=== PATIENT | female | born 1955 | race Caucasian/White ===

== ENCOUNTER 2025-03-30 08:55 | Outpatient (CLI) | payer MEDICARE, BC, SELFPAY ==
--- NOTE | ~2025-03-30 | XR_ITS ---
XR hip RT 2V w AP pelvis 03/30/2025 09:14 INDICATION: Right hip pain PROCEDURE: AP pelvis and 2 views right hip COMPARISON: No prior studies for comparison. FINDINGS: Fracture, dislocation or subluxation is not identified. The soft tissues appear within norm al limits. No foreign bodies are identified. There is lower lumbar spondylosis. IMPRESSION: 1: NO ACUTE BONE OR JOINT ABNORMALITY IDENTIFIED. Reviewed, dictated and finalized at location A.
--- NOTE | ~2025-03-30 | US_ITS ---
EXAMINATION: US venous doppler LE RT DATE: 03/30/2025 09:36 INDICATION: Right lower leg pain TECHNIQUE: Grayscale ultrasound images without and with compression and Doppler ultrasound images of the right lower extremity veins were obtained. COMPARISON: None. FINDINGS: The visualized portions of right common femoral vein, profunda (deep) femoral vein, femoral vein, pop liteal vein, peroneal trunk, posterior tibial veins, peroneal veins, gastrocnemius vein and greater s aphenous vein outflow are patent. IMPRESSION: 1. No deep venous thrombosis in the right lower limb. Reviewed, dictated and finalized at location A.
--- OUTSIDE RECORDS SUMMARY | 2025-03-30 09:03 | XMS_ITS | Clinical Summary ---
Author Organization [facility] [address] [place] [id number] Care Team Providers Care Drill Operator Name Role Phone Kiara Marie DO Primary Care Provider [phone] Allergies No known active allergies Medications alendronate (FOSAMAX) 70 mg tablet TAKE 1 TABLET BY MOUTH ONCE A WEEK 12 tablet 12/15/2019 Active Surgical History Surgery Date Site/Laterality Comments ENDOMETRIAL ABLATION Family History Medical History Relation Name Comments Breast cancer Neg Hx Social History Tobacco Use Types Packs/Day Years Used Date Smoking Tobacco: Never Assessed Comments No Sex and Gender Information Value Date Recorded Sex Assigned at Not on file Legal Sex Female 5:45 PM DOWELER Gender Identity Female 12/05/2021 6:34 PM CDT Sexual Orientation Straight 12/05/2021 6: 34 PM CDT Obstetrics History Para Term AB IAB SAB Ectopic Multiple Livin g Live Births 2 2 2 Date Outcome GA Total Labor Labor/2nd/3rd Weight Sex Type Anes PTL Denisha A1 A5 Name Clin Term Term Last Filed Vital Signs Vital Sign Reading Time Taken Comments Blood Pressure 120/78 11/05/2018 10:45 AM CDT Pulse 0 05/03/2016 9:45 AM CDT Temperature - - Respiratory Rate - - Oxygen Saturation - - Inhaled Oxygen Concentration - - Weight 63 kg (139 lb) 11/05/2018 10:45 AM CDT Height 165.1 cm (5' 5) 11/05/2018 10:45 AM CDT Body Mass Index 23.13 11/05/2018 10:45 AM CDT Plan of Treatment Health Maintenance Due Date Last Done Comments Colon Cancer Screening-Colonoscopy 1955 Depression Screening 1955 Fall Risk Assessment 1955 Hepatitis C Screening 1956 Hepatitis B Screening 1974 Pneumococcal vaccine 65+ (1 of 1 - PCV) 2006 Osteoporosis Screening-Bone Density Scan 10/10/2020 10/10/2018 Well Visit 65+ 2021 Covid-19 Vaccine (4 - 2023-2 5 season) 2024 06/06/2021, 09/07/2020, 08/21/2020 Breast Cancer Screening-Mammogram 02/10/2025 02/11/2024, 02/06/2023, 11/30/2021, Additional history exists Influenza Vaccine (#1) 2025 2, 05/20/2021, 05/02/2021, Additional history exists DTaP/Tdap/Td Vaccine (3 - Td or Tdap) 09/18/2026 09/18/2016, 09/01/2010 Zoster Vaccine Completed 07/06/2021, 070 02/2021, 03/26/2017 Procedures Procedure Name Priority Date/Time Associated Diagnosis Comments SCREENING MAMMOGRAM BILATERAL W VERA Schedule Routine, Read Routine (OP Routine) 02/11/2024 11:48 AM CDT Screening mammogram, encounter for DEXA AXIAL SKELETON BONE DENSITY 1 OR MORE SITES Routine 10/10/2018 8:36 AM DOWELER from Last 3 Months or Most Recently Relevant to Health Maintenance Results * Screening Mammogram Bilateral W Vera (02/11/2024 11:48 AM CDT) Anatomical Region Laterality Modality Breast Bilateral Mammography Impressions 02/11/2024 12:38 PM CDT BI-RADS ATLAS category (overall): 1 - Negative There is no mammographic evidence of malignancy. A 1 year screening mammogram is recommended. The patient has been or will be contacted. We recommend annual screening mammography for women at average risk of breast cancer beginning at age 40, based on guidelines of the [place] [employer] (ACR Practice Parameter for the Performance of Screening and Diagnostic Mammography) and [place] [employer]. For women with and elevated risk of breast cancer, please refer to the ACR Practice Parameter for specific screening recommendations. The patient will be entered into a reminder system with a target due date of 1 year for her next screening exam. Narrative 02/11/2024 12:38 PM CDT Screening Mammogram Bilateral W Vera: 02/11/24 The study was acquired using full field digital technology and interpreted from soft copy. 2D digital mammographic views, as well as 3D digital tomosynthesis were performed in the CC and MLO projections. CLINICAL: Screening mammogram, encounter for. No relevant medical history has been documented for this patient. History of breast cancer in Neg Hx. COMPARISONS: 02/06/2023 Screening Mammogram Bilateral W Vera 11/30/2021 Screening Mammogram Bilateral W Vera 11/06/2019 Screening Mammogram Bilateral W Vera BREAST TISSUE: The breasts have scattered areas of fibroglandular density. FINDINGS: No suspicious masses, suspicious calcifications, or other suspicious findings are seen within either breast. There has been no suspicious change. us Self Screening Mammogram IMG MAMMO PROCEDURES Fi nal Result * Dexa Axial Skeleton Bone Density 1 or 2 Site (10/10/2018 8:36 AM DOWELER) Anatomical Region Laterality Modality Body N/A Radiographic Yoly ging 10/10/2018 8:36 AM DOWELER Impressions 10/10/2018 9:14 AM DOWELER Osteoporosis. Bone mineral density: Normal (T-score above or = -1.0) Low bone mass (T-score between -1.0 and -2.5) replaces the previously used term osteopenia Osteoporosis (T-score = or below -2.5) Medical evaluation for secondary causes of low bone mineral density may be appropriate. FRAX is a World Health Organization validated fracture risk assessment tool that calculates a person's 10 year probability of a major osteoporosis related fracture and hip fracture. According to the National Osteoporosis Foundation guidelines, postmenopausal women and men age 50 or older with low bone mass and a 10 year probability of a major osteoporosis related fracture = or greater than 20% or a 10 year probability of a hip fracture = or greater than 3% should be considered for treatment. For further information, including treatment recommendations, please refer to the 2013 ISCD Official Positions (http://www.iscd.org) and the NOF's Clinician's Guide to Prevention and Treatment of Osteoporosis (http://www.nof.org/professionals/clinical-guidelines) THIS IS AN ELECTRONICALLY VERIFIED FINAL REPORT 10/10/2018 9:12 AM - Electronically signed by Charly Shaver M.D. RB: EDU Report ID: [id number] Reading Location: [id number] [EOD] Narrative 10/10/2018 9:14 AM DOWELER EXAM DESCRIPTION: Bone Density Hip/Spine (STD) REASON FOR STUDY: 62 y/o year old postmenopausal white female with given history of osteoporosis. Gis Analyst/Model: [employer] A (S/N [id number]) CLINICAL INFORMATION: Current height: 65 inches Maximum height: 67 inches Weight: 139 pounds Risk factors: Previous fracture as an adult. Has taken Actonel, Evista, Fosamax, and calcium. Performs regular weight-bearing exercise. Does not regularly consume dairy products. Drinks caffeinated beverages. COMPARISON: None available. This will serve as a new baseline. Acquisition of a new DXA machine precludes comparison with older exams due to differences in scan type. FINDINGS: AP LUMBAR SPINE L1-L4: Total BMD is 0.694 g/cm2 T-score is -3.2 LEFT HIP: Total BMD is 0.741 g/cm2 T-score is -1.6 Femoral neck BMD is 0.630 g/cm2 T-score is -2.0 Procedure Note Provider, MD Lidia - 01/04/2021 EXAM DESCRIPTION: Bone Density Hip/Spine (STD) REASON FOR STUDY: 62 y/o year old postmenopausal white female with given history of osteoporosis. Gis Analyst/Model: [employer] A (S/N [id number]) CLINICAL INFORMATION: Current height: 65 inches Maximum height: 67 inches Weight: 139 pounds Risk factors: Previous fracture as an adult. Has taken Actonel, Evista, Fosamax, and calcium. Performs regular weight-bearing exercise. Does not regularly consume dairy products. Drinks caffeinated beverages. COMPARISON: None available. This will serve as a new baseline. Acquisition of a new DXA machineprecludes comparison with older exams due to differences in scan type. FINDINGS: AP LUMBAR SPINE L1-L4: Total BMD is 0.694 g/cm2 T-score is -3.2 LEFT HIP: Total BMD is 0.741 g/cm2 T-score is -1.6 Femoral neck BMD is 0.630 g/cm2 T-score is -2.0 IMPRESSION: Osteoporosis. Bone mineral density: Normal (T-score above or = -1.0) Low bone mass (T-score between -1.0 and -2.5) replaces the previously used term osteopenia Osteoporosis (T-score = or below -2.5) Medical evaluation for secondary causes of low bone mineral density may be appropriate. FRAX is a World Health Organization validated fracture risk assessmenttool that calculates a person's 10 year probability of a major osteoporosisrelated fracture and hip fracture. According to the National OsteoporosisFoundation guidelines, postmenopausal women and men age 50 or older with low bonemass and a 10 year probability of a major osteoporosis related fracture = or greater than 20% or a 10 year probability of a hip fracture = or greaterthan 3% should be considered for treatment. For further information, including treatment recommendations, please referto the 2013 ISCD Official Positions (http://www.iscd.org) and the NOF's Clinician's Guide to Prevention and Treatment of Osteoporosis (http://www.nof.org/professionals/clinical-guidelines) THIS IS AN ELECTRONICALLY VERIFIED FINAL REPORT 10/10/2018 9:12 AM - Electronically signed by Charly Shaver M.D. RB: EDU Report ID: [id number] Reading Location: [id number] [EOD] Hubert Mathur MD IMG DXA PROCEDURES Alva l Result from Last 3 Months or Most Recently Relevant to Health Maintenance Insurance MEDICARE Care Teams Drill Operator Relationship Specialty Start Date End Date Kiara Marie DO [address] [address] PCP - General 10/10/18
--- OUTSIDE RECORDS SUMMARY | 2025-03-30 09:03 | XMS_ITS | Encounter Summary ---
Author Organization [facility] Care Team Providers Care Manager Family Name Role Phone Kiara Marie DO Primary Care Provider [phone] Encounter Details Date Type Department Care Team (Latest Contact Info) Description 10/31/2018 Orders Only MMG CLINCONV ProviderLidia MD [address] [place] [id number] Social History Tobacco Use Types Packs/Day Years Used Date Smoking Tobacco: Never Assessed Comments Unknown Sex and Gender Information Value Date Recorded Sex Assigned at Not on file Legal Sex Female 5:45 PM RESIDENT CARE AID Gender Identity Female 12/05/2021 6:34 PM CDT Sexual Orientation Straight 12/05/2021 6: 34 PM CDT documented as of this encounter Plan of Treatment Not on file documented as of this encounter Procedures Procedure Name Priority Date/Time Associated Diagnosis Comments SCAN - LABS 10/31/2018 12:00 AM CDT documented in this encounter Results * SCAN - LABS (10/31/2018 12:00 AM CDT) Narrative 10/31/2018 12:00 AM CDT Ordered by an unspecified provider. us Historical Provider Final Res ult documented in this encounter Visit Diagnoses Not on filedocumented in this encounter Care Teams Manager Family Relationship Specialty Start Date End Date Kiara Marie DO [address] [address] PCP - General 10/10/18 documented as of this encounter
--- OUTSIDE RECORDS SUMMARY | 2025-03-30 09:03 | XMS_ITS | Clinical Summary ---
Author Organization [facility] Address [address] [place] [address] Care Team Providers Care Military Technology Specialist Name Role Phone Kiara Marie Primary Care Provider Allergies Active Allergy Reactions Criticality Noted Date Comments Risedronate GI Upset 05/15/2013 Medications Calcium Carb-Cholecalcif ron 600-200 MG-UNIT Tab Take 1 tablet by mouth 2 (two) times daily. Active fluticasone propionate 50 MCG/ACT nasal spray 2 sprays by Nasal route as needed. 8 Active Multiple Vitamin tablet Active famotidine (PEPCID) 20 MG tablet Take 20 mg by mouth 2 (two) times daily. Active Probiotic Product (PROBIOTIC ADVANCED) Cap Active oxybutynin (DITROPAN) 5 MG tabletIndication s:Overactive bladder TAKE 1 TABLET BY MOUTH TWICE DAILY 180 tablet 2 3 Active rizatriptan (MAXALT) 10 MG tabletIndication s:Migraine without status migrainosus, not intractable, unspecified migraine type TAKE DIRECTED AND MAY REPEAT IN 2 HOURS NEEDED 18 tablet 5 3 Active sertraline (ZOLOFT) 50 MG tabletIndication s:Anxiety TAKE 1 TABLET BY MOUTH DAILY 90 tablet 3 Active Active Problems Problem Noted Date Diagnosed Date Breast pain, right 07/11/2023 Vaginal irritation 07/11/2023 Abdominal pressure 07/11/2023 Finger pain, left 11/23/2022 Overactive bladder 08/25/2022 History of colon polyps 05/27/2020 Anxiety 10/07/2019 Migraines 11/02/2015 Acid reflux disease 05/15/2013 Allergic rhinitis 05/15/2013 Osteoporosis 05/15/2013 Overview (08/25/2022): Description: did not tolerate actonel was on evista but quit that too Fosamax started 2018--took until 2021 but bothered stomach and stopped Does not want to try Prolia Arthritis of multiple sites 10/31/2012 Resolved Problems Problem Noted Date Diagnosed Date Resolved Date Preventative health care 08/25/202204/2023 Encounter for lipid screenin g for cardiovascular disease 08/25/2022 08/28/2022 Encounter for lipid screenin g for cardiovascular disease 06/22/2021 06/27/2021 Encounter for lipid screenin g for cardiovascular disease 05/27/2020 05/31/2020 Preventative health care 05/27/202007/2020 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 05/27/2020 Encounter for preventive health examination 10/31/2012 04/30/2020 Immunizations Immunization Administration Dates Next Due Flucelvax 6 Months+ (Prefill ed Syringe) 04/30/2019,05/29/2016 Fluzone 6 Months+ Quad (0.5 mL Prefilled Syringe) 04/07/2020 Influenza (Generic) 04/16/2018 Influenza Adult (Generic) 04/12/2022,08/2020,04/07/2020,2018 PFIZER COVID-19 (ORIGINAL FORMULATION, PURPLE CAP) mRNA, LNP-S, PF, 30 MCG/0.3 ML DOSE 09/07/2020,08/21/2020 Pneumococcal (Prevnar 20) 04/12/2022 Shingrix 07/06/2021,02/23/2021 Tdap (Generic) 09/18/2016,09/01/2010 Zoster (Zostavax) [address] Unt/0.65Ml 03/27/2017 Family History Medical History Relation Comments Hyperlipidemia Father Hypertension Mother Cancer Other Diabetes Other Relation Status Comments Father Mother Other Social History Tobacco Use Types Packs/Day Years Used Date Smoking Tobacco: Never Smokeless Tobacco: Never Alcohol Use Standard Drinks/Week Comments No 0 (1 standard drink = 0.6 oz pur e alcohol) AUDIT-C Answer Date Recorded Frequency of Alcohol Consumption Never 02/11/2019 Average Number of Drinks Not on file 019 Frequency of Binge Drinking Not on file 01/19 PHQ-2 Answer Date Recorded Patient Health Questionnaire-2 Score 0 08/25/2022 Comments Unknown Sex and Gender Information Value Date Recorded Sex Assigned at Not on file Legal Sex Female 6:17 PM CDT Gender Identity Not on file Sexual Orientation Not on file 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 Not on file Not on noah e Last Filed Vital Signs Vital Sign Reading Time Taken Comments Blood Pressure 110/70 07/11/2023 10:24 AM MECHANICAL ORDNANCE ASSEMBLER Pulse 62 08/25/2022 9:23 AM MECHANICAL ORDNANCE ASSEMBLER Temperature 36.7 C (98 F) 10/07/2019 9:08 AM MECHANICAL ORDNANCE ASSEMBLER Respiratory Rate - - Oxygen Saturation - - Inhaled Oxygen Concentration - - Weight 63.5 kg (140 lb) 07/11/2023 10:24 AM MECHANICAL ORDNANCE ASSEMBLER Height 168.9 cm (5' 6.5) 08/25/2022 9:23 AM MECHANICAL ORDNANCE ASSEMBLER Body Mass Index 22.26 08/25/2022 9:23 AM MECHANICAL ORDNANCE ASSEMBLER Plan of Treatment Health Maintenance Due Date Last Done Comments Hepatitis C 1974 Dexa Scan (General) 2021 Annual Medicare Wellness Visit 08/26/2023 08/25/2022 COVID-19 Vaccine ( season) 2024 06/01/2022, 06/06/2021, 09/07/2020, Additional history exists Mammogram Screening 02/06/2025 02/06/2023 DTaP, Tdap and Td Vaccines (3 - Td or Tdap) 09/18/2026 09/18/2016, 09/01/2010 Colorectal Cancer Screening Colonoscopy (10 Years) 07/20/2027 07/20/2017 RSV Immunization or 60+ Years (1 - 1-dose 75+ series) 12/17/2031 Zoster Vaccines Completed 07/06/2021, 07/0 02/2021, 03/27/2017 Pneumococcal Vaccine: 50+ Years Completed 04/12/2022 Meningococcal B Vaccine Aged Out No l onger eligible based on patient's age to complete this topic Meningococcal Vaccine Aged Out No rj francisco j eligible based on patient's age to complete this topic RSV Immunizations Under 20 Months Aged Out No longer eligible based on patient's age to complete this topic Procedures Procedure Name Priority Date/Time Associated Diagnosis Comments MAMMOGRAM GENERIC (SCAN ORDER) Routine 02/06/2023 COLONOSCOPY Routine 07/20/2017 12:00 AM MECHANICAL ORDNANCE ASSEMBLER from Last 3 Months or Most Recently Relevant to Health Maintenance Results * MAMMOGRAM (02/06/2023) Anatomical Region Laterality Modality Other us Doc Bfma Scanned SCANNING Final Result * Colonoscopy (07/20/2017 12:00 AM MECHANICAL ORDNANCE ASSEMBLER) 07/20/2017 07/20/2017 Narrative TOUCHWORKS TO EPIC CONVERSION - 07/20/2017 12:00 AM MECHANICAL ORDNANCE ASSEMBLER Documented hx of procedure Procedure Note Md Generic MD Robin - 11/07/2018 Documented hx of procedure us Generic Conversion Md EPSTEIN GI PROCEDURE ORDERABLES Final Result TOUCHWORKS TO EPIC CONVERSION from Last 3 Months or Most Recently Relevant to Health Maintenance Insurance MEDICARE [facility] [place] [address] MEDICARE [facility] Care Teams Military Technology Specialist Relationship Specialty Start Date End Date Kiara Marie DO [address] [place] [address] PCP - General 10/21/12
--- OUTSIDE RECORDS SUMMARY | 2025-03-30 09:03 | XMS_ITS | Clinical Summary ---
Author Organization [facility] Address [address] [place] [address] Care Team Providers Care Regulatory And Compliance Technician Name Role Phone Kiara Marie Primary Care Provider [phone] Source Comments [facility],non-owned Affiliates and Associated Physician Practices is amultiple site organization consisting of ambulatory clinics and hospital sitesin [place], [place], [place] and [place]. This disclosure is being madepursuant to the Care Everywhere program and may not contain all information available regarding this patient. Last updated 18.[facility] Allergies No known active allergies Medications * Be aware that medications may not be up to date on this document. Alwaysverify current medications with the patient. No known medications Family History Medical History Relation Name Comments Cancer - Lung Father Hypertension Mother Relation Name Status Comments Father Mother Social History Tobacco Use Types Packs/Day Years Used Date Smoking Tobacco: Never Smokeless Tobacco: Never Comments No Sex and Gender Information Value Date Recorded Sex Assigned at Not on file Legal Sex Female 7:59 AM CDT Gender Identity Not on file Sexual Orientation Not on file Last Filed Vital Signs Vital Sign Reading Time Taken Comments Blood Pressure 102/72 04/24/2017 11:07 AM CDT Pulse 71 04/24/2017 11:07 AM CDT Temperature 36.6 C (97.8 F) 04/24/2017 11:07 AM CDT Respiratory Rate 16 04/24/2017 11:07 AM CDT Oxygen Saturation 98% 04/24/2017 11:07 AM CDT Inhaled Oxygen Concentration - - Weight 61.7 kg (136 lb) 04/24/2017 11:07 AM CDT Height 167.6 cm (5' 6) 04/24/2017 11:07 AM CDT Body Mass Index 21.95 04/24/2017 11:07 AM CDT Plan of Treatment Health Maintenance Due Date Last Done Comments BONE DENSITY TESTING 1955 COLOGUARD (AGES 45-75) - COL ON CA SCREENING 1956 COLON MONITORING 1956 COLONOSCOPY - COLON CA SCREENING 1956 CT COLONOGRAPHY - COLON CA SCREENING 1955 Colorectal Cancer Screening 1956 FIT - COLON CA SCREENING 1956 FLEX SIG - COLON CA SCREENING 1956 LIPID TESTING 1956 MAMMOGRAM 1956 HEPATITIS C SCREENING 12/12/1974 DTAP/TDAP/TD VACCINES (1 - Tdap) 12/17/1975 PNEUMOCOCCAL VACCINE 50+ (1 of 1 - PCV) 2006 ZOSTER VACCINE (1 of 2) 2006 COVID-19 VACCINE (1 - 2023-2 5 season) 2024 DEPRESSION SCREENING 08/20/2024 INFLUENZA VACCINE (#1) 2025 Respiratory Syncytial Virus (RSV) Vaccine Pt: or over 60 yrs (1 - 1-dose 75+ series) 12/17/2031 HEPATITIS B VACCINE Aged Out No longe r eligible based on patient's age to complete this topic HIB VACCINE Aged Out No longer eligi ble based on patient's age to complete this topic HPV VACCINE Aged Out No longer eligi ble based on patient's age to complete this topic MENINGOCOCCAL (Group B) VACC INE SHARED DECISION-MAKING Aged Out No longer eligibl e based on patient's age to complete this topic MENINGOCOCCAL GROUPS A/C/Y/W VACCINE Aged Out No longer eligible b ased on patient's age to complete this topic Insurance [employer] Care Teams Regulatory And Compliance Technician Relationship Specialty Start Date End Date Kiara Marie DO PCP - General Family Medicine 04/24/17
== END 2025-03-30 08:56 | disposition home or self-care (01) ==
PROVIDERS: PCP Nurse Practitioner Family; Visit Provider Nurse Practitioner Family
DX: M25.551 Pain in right hip (principal); M79.661 Pain in right lower leg; M79.89 Other specified soft tissue disorders
CPT/HCPCS: 73502; 93971

== ENCOUNTER 2025-05-06 08:13 | Outpatient (CLI) | payer MEDICARE, BC, SELFPAY ==
--- NOTE | ~2025-05-06 | DEXA_ITS ---
Bone Density Report Name: MEE SANCHES Age: 69 Sex: Female Ethnicity: White Date of : 1955 Indication: postmenopausal; screening for osteoporosis; parental hip fracture; height loss; prior fracture; secondary osteoporosis; Referring Provider: BRENNAN DIXON Study: Bone densitometry was performed. Exam Date: May 06, 2025 Accession number: [id number] Bone Density: Region BMD T-score Z-score Classification AP Spine(L1-L4) 0.713 -3.0 -1.0 Osteoporosis Femoral Neck (Left) 0.566 -2.6 -0.9 Osteoporosis Total Hip (Left) 0.773 -1.4 0.0 Osteopenia Femoral Neck (Right) 0.580 -2.4 -0.7 Osteopenia Total Hip (Right) 0.713 -1.9 -0.5 Osteopenia Total Hip Mean 0.743 -1.7 -0.3 Osteopenia World Health Organization criteria for BMD impression classify patients as: Normal (T-score at or above -1.0), Osteopenia (T-score between -1.0 and -2.5), or Osteoporosis (T-score at or below -2.5). 10-year Fracture Risk: FRAX not reported because: Some T-score for Spine Total or Hip Total or Femoral Neck at or below -2.5 Clinical Information Provided by Patient: Has had a low trauma fracture Parent has had a hip fracture Has secondary osteoporosis Has used the following medications: Fosamax (i.e. alendronate), Calcium Patient maximum height was 67 Menopause Age: 45 No regular weight bearing exercise Drinks caffeinated beverages Onset of menses at age 15 Number of children 2 Impression: The patient has established osteoporosis, based on the Total Spine T-score and the existence of a prior fracture. The patient has risk factors, including: parental hip fracture, previous fracture. Discussion: HIGH RISK OF FRACTURE. BONE DENSITY IS UNDESIRABLY LOW AT ONE OR MORE SKELETAL SITES, CONSISTENT WITH POSTMENOPAUSAL OSTEOPOROSIS. This patient's lowest T-score, in a patient who has previously fractured, meets the World Health Organization's (WHO) criteria for severe osteoporosis. In untreated patients, the risk of osteoporotic fracture increases approximately two-fold for each 1.0 SD decrease in T-score. Low bone density is not the only risk factor for fracture; also consider factors such as patient's age, frailty or poor health, risk of falling, risk of injury, previous osteoporotic fracture, family history of osteoporosis, cigarette smoking, low body weight, etc. Not everyone with low bone mineral density has osteoporosis; osteomalacia and other metabolic bone disorders should also be considered. Patients who have osteoporosis should be evaluated for specific diseases and conditions (secondary causes) that may cause or contribute to bone loss. The [place] Association of Clinical Endocrinologists (AACE) and National Osteoporosis Foundation (NOF) recommend pharmacologic intervention for all postmenopausal women whose T-score is in this range. The patient should follow a healthful lifestyle (good nutrition with adequate calcium and vitamin D, and appropriate weight-bearing exercise). Follow-Up: Consider a repeat BMD and Vertebral Fracture Assessment (VFA) exam in 2 years or sooner if medically necessary, to reassess this patient's status. Reported by: KUSH on 05/06/2025 8:55:00 AM. Reviewed, dictated and finalized at location A.
--- OUTSIDE RECORDS SUMMARY | 2025-05-06 08:38 | XMS_ITS | Encounter Summary ---
Author Organization [facility] Facility Care Team Providers Care Highway Maintenance Worker Name Role Phone Kiara Marie DO Primary Care Provider [phone] Encounter Details Date Type Department Care Team (Latest Contact Info) Description 10/31/2018 Orders Only MMG CLINCONV ProviderLidia MD [address] [place] [id number] Social History Tobacco Use Types Packs/Day Years Used Date Smoking Tobacco: Never Assessed Comments Unknown Sex and Gender Information Value Date Recorded Sex Assigned at Not on file Legal Sex Female 5:45 PM COMMERCIAL FISHERMAN Gender Identity Female 12/05/2021 6:34 PM CDT [...] on filedocumented in this encounter Care Teams Highway Maintenance Worker Relationship Specialty Start Date End Date Kiara Marie DO [address] [address] PCP - General 10/10/18 documented as of this encounter
--- OUTSIDE RECORDS SUMMARY | 2025-05-06 08:38 | XMS_ITS | Clinical Summary ---
Author Organization [facility] Address [address] [place] [address] Care Team Providers Care Rig Superintendent Name Role Phone Kiara Marie Primary Care Provider Source Comments [facility],non-owned Affiliates and Associated Physician Practices is amultiple site organization consisting of ambulatory clinics and hospital sitesin [place], [place], [place] and [place]. This disclosure is being madepursuant to the Care Everywhere program and may not contain all information available regarding this patient. Last updated 18.[facility] Allergies No known active allergies Medications * [...] 2006 ZOSTER VACCINE (1 of 2) 2006 DEPRESSION SCREENING 08/20/2024 COVID-19 VACCINE (1 - 2023-2 5 season) 2025 INFLUENZA VACCINE (#1) 2025 Respiratory Syncytial Virus [...] patient's age to complete [place] [address] [employer] Care Teams Rig Superintendent Relationship Specialty Start Date End Date Kiara Marie DO PCP - General Family Medicine 04/24/17
--- OUTSIDE RECORDS SUMMARY | 2025-05-06 08:38 | XMS_ITS | Clinical Summary ---
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 on file Not on noah e Last Filed Vital Signs Vital Sign Reading Time Taken Comments Blood Pressure 110/70 07/11/2023 10:24 AM FOREST FIRE SPECIALIST SUPERVISOR Pulse 62 08/25/2022 9:23 AM FOREST FIRE SPECIALIST SUPERVISOR Temperature 36.7 C (98 F) 10/07/2019 9:08 AM FOREST FIRE SPECIALIST SUPERVISOR Respiratory Rate - - Oxygen Saturation - - Inhaled Oxygen Concentration - - Weight 63.5 kg (140 lb) 07/11/2023 10:24 AM FOREST FIRE SPECIALIST SUPERVISOR Height 168.9 cm (5' 6.5) 08/25/2022 9:23 AM FOREST FIRE SPECIALIST SUPERVISOR Body Mass Index 22.26 08/25/2022 9:23 AM FOREST FIRE SPECIALIST SUPERVISOR Plan of Treatment Health Maintenance Due Date Last Done Comments Hepatitis C 1973 Dexa Scan (General) 2021 Annual Medicare Wellness Visit 08/26/2023 08/25/2022 Mammogram Screening 02/06/2025 02/06/2023 COVID-19 Vaccine ( season) 2025 06/01/2022, 06/06/2021, 09/07/2020, Additional history exists DTaP, Tdap and Td Vaccines (3 - [...] Routine 02/06/2023 COLONOSCOPY Routine 07/20/2017 12:00 AM FOREST FIRE SPECIALIST SUPERVISOR from Last 3 Months or Most Recently Relevant to Health Maintenance Results * MAMMOGRAM (02/06/2023) Anatomical Region Laterality Modality Other us Doc Bfma Scanned SCANNING Final Result * Colonoscopy (07/20/2017 12:00 AM FOREST FIRE SPECIALIST SUPERVISOR) 07/20/2017 07/20/2017 Narrative TOUCHWORKS TO EPIC CONVERSION - 07/20/2017 12:00 AM FOREST FIRE SPECIALIST SUPERVISOR Documented hx of procedure Procedure Note Md Generic MD Robin - 11/07/2018 Documented hx of procedure us Generic Conversion Md EPSTEIN GI PROCEDURE ORDERABLES Final Result TOUCHWORKS TO EPIC CONVERSION from Last 3 Months or Most Recently Relevant to Health Maintenance Insurance MEDICARE [facility] [place] [address] MEDICARE [facility] Care Teams Film Spooler Relationship Specialty Start Date End Date Kiara Marie DO [address] [place] [address] PCP - General 10/21/12
--- OUTSIDE RECORDS SUMMARY | 2025-05-06 08:38 | XMS_ITS | Clinical Summary ---
Author Organization [facility] [address] [place] [address] Care Team Providers Care Mortgage Funder Name Role Phone Kiara Marie DO Primary Care Provider Allergies No known active allergies Medications alendronate [...] on file Legal Sex Female 5:45 PM TAR DISTRIBUTOR OPERATOR Gender Identity Female 12/05/2021 6:34 PM CDT [...] Scan 10/10/2020 10/10/2018 Well Visit 65+ 2021 Breast Cancer Screening-Mammogram 02/10/2025 02/11/2024, 02/06/2023, 11/30/2021, Additional history exists Covid-19 Vaccine (4 - 2024-2 6 season) 2025 06/06/2021, 09/07/2020, 08/21/2020 Influenza Vaccine (#1) 2025 , 05/20/2021, 05/02/2021, Additional history exists DTaP/Tdap/Td Vaccine (3 - Td or Tdap) 09/18/2026 09/18/2016, 09/01/2010 Zoster Vaccine Completed 07/06/2021, 07/0 02/2021, 03/26/2017 Procedures Procedure Name Priority Date/Time Associated Diagnosis Comments SCREENING MAMMOGRAM BILATERAL W VERA Schedule Routine, Read Routine (OP Routine) 02/11/2024 11:48 AM CDT Screening mammogram, encounter for DEXA AXIAL SKELETON BONE DENSITY 1 OR MORE SITES Routine 10/10/2018 8:36 AM TAR DISTRIBUTOR OPERATOR from Last 3 Months or Most Recently [...] age 40, based on guidelines of the [place] College of Radiology (ACR Practice Parameter for the Performance of Screening and Diagnostic Mammography) and [place] College of Obstetricians and Gynecologists. For women [...] 1 or 2 Site (10/10/2018 8:36 AM TAR DISTRIBUTOR OPERATOR) Anatomical Region Laterality Modality Body N/A Radiographic Yoly ging 10/10/2018 8:36 AM TAR DISTRIBUTOR OPERATOR Impressions 10/10/2018 9:14 AM TAR DISTRIBUTOR OPERATOR Osteoporosis. Bone mineral density: Normal (T-score above [...] Charly Shaver M.D. RB: EDU Report ID: [id number] Reading Location: [id number] [EOD] Narrative 10/10/2018 9:14 AM TAR DISTRIBUTOR OPERATOR EXAM DESCRIPTION: Bone Density Hip/Spine (STD) REASON FOR STUDY: 62 y/o year old postmenopausal white female with given history of osteoporosis. Machine Cloth Measurer/Model: StarGreetz A (S/N [id number]) CLINICAL INFORMATION: Current height: 65 inches Maximum [...] white female with given history of osteoporosis. Machine Cloth Measurer/Model: HoloAuramist Horizon A (S/N [id number]) CLINICAL INFORMATION: Current height: 65 inches Maximum [...] Charly Shaver M.D. RB: EDU Report ID: [id number] Reading Location: [id number] [EOD] Hubert Mathur MD IMG DXA PROCEDURES Alva l Result from Last 3 Months or Most Recently Relevant to Health Maintenance Insurance MEDICARE Care Teams Mortgage Funder Relationship Specialty Start Date End Date Kiara Marie DO [address] [address] PCP - General 10/10/18
--- OUTSIDE RECORDS SUMMARY | 2025-05-06 08:38 | XMS_ITS | Patient Health Record ---
Author Organization [facility] Address [address] [place], [place] [id number] Care Team Providers Care Director Wholesale Name Role Phone JORGE Garcia Unavailable Kiara Marie Unavailable Unavailable Reason For Referral No Information Plan Of Treatment No Information Insurance Providers Payer Name Payer Address Payer Phone Subscriber Number Group Number Insured Name Patient Relationship to Insured Coverage Start Date Coverage End Date Aetna [address] [place] [address] [id number] MEE SANCHES Self - patient is the insured [facility] ([facility]) ATTN CLAIMS [address] [place] [address] [id number] SHELL SANCHES Spouse - patient is the spouse of the insured
== END 2025-05-06 08:14 | disposition home or self-care (01) ==
LOC: ANHFOHIMG 08:13
PROVIDERS: PCP Nurse Practitioner Family; Visit Provider Nurse Practitioner Family
DX: M81.0 Age-related osteoporosis without current pathological fracture (principal); M85.89 Other specified disorders of bone density and structure, multiple sites; Z78.0 Asymptomatic menopausal state
CPT/HCPCS: 77080

== ENCOUNTER 2025-05-12 09:13 | Outpatient (CLI) | payer MEDICARE, BC, SELFPAY ==
--- NOTE | ~2025-05-12 | MM_ITS ---
CORRECTED REPORT added addendum JMG 05/25/25 This report was recreated on 05/25/25. Original report was ADDENDUM This is an addendum to a previously dictated report. A comparison mammogram from 02/06/2023 has become available since the initial dictation. No change in the body of the report, impression, recommendation or BI-RADS category. EXAMINATION: MM screening alex BI w julio HISTORY: Screening TECHNIQUE: Craniocaudal and mediolateral oblique 3-D tomosynthesis images were obtained and synthetic 2-D images were generated. CAD analysis was submitted and interpreted. COMPARISON: No prior mammogram is available for comparison at this institution. BREAST PARENCHYMAL COMPOSITION: There are scattered areas of fibroglandular density. FINDINGS: There is no evidence of suspicious mass, calcification, or architectural distortion to suggest malignancy. Asymmetry in the lower left breast, posterior depth, seen in the left MLO projection. IMPRESSION: 1. Asymmetry in the lower left breast, posterior depth, seen in the left MLO projection. The study is incomplete. A diagnostic mammogram and a diagnostic ultrasound are recommended. 2. No mammographic evidence for malignancy in the right breast. BI-RADS 0: Incomplete-Need additional imaging evaluation. Reviewed, dictated and finalized at location Q. IMPRESSION: 1. Asymmetry in the lower left breast, posterior depth, seen in the left MLO pr ojection. The study is incomplete. A diagnostic mammogram and a diagnostic ultr asound are recommended. 2. No mammographic evidence for malignancy in the right breast. BI-RADS 0: Incomplete-Need additional imaging evaluation.
--- OUTSIDE RECORDS SUMMARY | 2025-05-12 09:48 | XMS_ITS | Patient Health Record ---
Author Organization [facility] Address [address] [place], [place] [id number] Care Team Providers Care Oracle Database Administrator Name Role Phone JORGE Garcia Unavailable Kiara Marie Unavailable Unavailable Reason For Referral No Information Plan Of Treatment No Information Insurance Providers Payer Name Payer Address Payer Phone Subscriber Number Group Number Insured Name Patient Relationship to Insured Coverage Start Date Coverage End Date Aetna [address] [place] [phone] [id number] MEE SANCHES Self - patient is the insured [facility] ([facility]) ATTN CLAIMS [address] [place] [address] [id number] SHELL SANCHES Spouse - patient is the spouse of the insured
--- OUTSIDE RECORDS SUMMARY | 2025-05-12 09:48 | XMS_ITS | Clinical Summary ---
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 on file Not on noah e Last Filed Vital Signs Vital Sign Reading Time Taken Comments Blood Pressure 110/70 07/11/2023 10:24 AM TOP AND TRIM WORKER Pulse 62 08/25/2022 9:23 AM TOP AND TRIM WORKER Temperature 36.7 C (98 F) 10/07/2019 9:08 AM TOP AND TRIM WORKER Respiratory Rate - - Oxygen Saturation - - Inhaled Oxygen Concentration - - Weight 63.5 kg (140 lb) 07/11/2023 10:24 AM TOP AND TRIM WORKER Height 168.9 cm (5' 6.5) 08/25/2022 9:23 AM TOP AND TRIM WORKER Body Mass Index 22.26 08/25/2022 9:23 AM TOP AND TRIM WORKER Plan of Treatment Health Maintenance Due Date [...] Routine 02/06/2023 COLONOSCOPY Routine 07/20/2017 12:00 AM TOP AND TRIM WORKER from Last 3 Months or Most Recently Relevant to Health Maintenance Results * MAMMOGRAM (02/06/2023) Anatomical Region Laterality Modality Other us Doc Bfma Scanned SCANNING Final Result * Colonoscopy (07/20/2017 12:00 AM TOP AND TRIM WORKER) 07/20/2017 07/20/2017 Narrative TOUCHWORKS TO EPIC CONVERSION - 07/20/2017 12:00 AM TOP AND TRIM WORKER Documented hx of procedure Procedure Note Md Generic MD Robin - 11/07/2018 Documented hx of procedure us Generic Conversion Md EPSTEIN GI PROCEDURE ORDERABLES Final Result TOUCHWORKS TO EPIC CONVERSION from Last 3 Months or Most Recently Relevant to Health Maintenance Insurance MEDICARE [facility] [address] MEDICARE [facility] Care Teams Slip Injector And Applicator Relationship Specialty Start Date End Date Kiara Marie DO [address] [place] [address] PCP - General 10/21/12
--- OUTSIDE RECORDS SUMMARY | 2025-05-12 09:48 | XMS_ITS | Clinical Summary ---
Author Organization [facility] [address] [place] [address] Care Team Providers Care Cook Jelly Name Role Phone Kiara Marie DO Primary [...] on file Legal Sex Female 5:45 PM CAPACITOR PACK PRESS OPERATOR Gender Identity Female 12/05/2021 6:34 PM [...] OR MORE SITES Routine 10/10/2018 8:36 AM CAPACITOR PACK PRESS OPERATOR from Last 3 Months or Most [...] age 40, based on guidelines of the [place] [employer] of [employer] (ACR Practice Parameter for the Performance of Screening and Diagnostic Mammography) and [place] College of Obstetricians and Gynecologists. For women [...] 1 or 2 Site (10/10/2018 8:36 AM CAPACITOR PACK PRESS OPERATOR) Anatomical Region Laterality Modality Body N/A Radiographic Yoly ging 10/10/2018 8:36 AM CAPACITOR PACK PRESS OPERATOR Impressions 10/10/2018 9:14 AM CAPACITOR PACK PRESS OPERATOR Osteoporosis. Bone mineral density: Normal (T-score [...] Charly Shaver M.D. RB: EDU Report ID: [id number] Reading Location: [id number] [EOD] Narrative 10/10/2018 9:14 AM CAPACITOR PACK PRESS OPERATOR EXAM DESCRIPTION: Bone Density Hip/Spine (STD) REASON FOR STUDY: 62 y/o year old postmenopausal white female with given history of osteoporosis. Fisher Trot Line/Model: Tour Engine A (S/N [id number]) CLINICAL INFORMATION: Current height: 65 inches Maximum [...] white female with given history of osteoporosis. Fisher Trot Line/Model: HoloMalesbanget Horizon A (S/N [id number]) CLINICAL INFORMATION: Current height: 65 inches Maximum [...] Charly Shaver M.D. RB: EDU Report ID: [id number] Reading Location: [id number] [EOD] Hubert Mathur MD IMG DXA PROCEDURES Alva l Result from Last 3 Months or Most Recently Relevant to Health Maintenance Insurance MEDICARE Care Teams Cook Jelly Relationship Specialty Start Date End Date Kiara Marie DO [address] [address] PCP - General 10/10/18
--- OUTSIDE RECORDS SUMMARY | 2025-05-12 09:48 | XMS_ITS | Encounter Summary ---
Author Organization [facility] Care Team Providers Care Job Developer For Deaf Adults Name Role Phone Kiara Marie DO Primary Care Provider [phone] Encounter Details Date Type Department Care Team (Latest Contact Info) Description 10/31/2018 Orders Only MMG CLINCONV ProviderLidia MD [address] [place] [id number] Social History Tobacco Use Types Packs/Day Years Used Date Smoking Tobacco: Never Assessed Comments Unknown Sex and Gender Information Value Date Recorded Sex Assigned at Not on file Legal Sex Female 5:45 PM CAR DISTRIBUTOR Gender Identity Female 12/05/2021 6:34 PM CDT [...] on filedocumented in this encounter Care Teams Job Developer For Deaf Adults Relationship Specialty Start Date End Date Kiara Marie DO [address] [address] PCP - General 10/10/18 documented as of this encounter
== END 2025-05-12 09:14 | disposition home or self-care (01) ==
LOC: ANHFOHIMG 09:15
PROVIDERS: PCP Nurse Practitioner Family; Visit Provider Nurse Practitioner Family
DX: Z12.31 Encounter for screening mammogram for malignant neoplasm of breast (principal); R92.8 Other abnormal and inconclusive findings on diagnostic imaging of breast
CPT/HCPCS: 77063; 77067

== ENCOUNTER 2025-06-18 12:53 | Outpatient (CLI) | payer MEDICARE, BC, SELFPAY ==
--- NOTE | ~2025-06-18 | MMUS_ITS ---
EXAMINATION: MM diagnostic alex LT w julio, US breast LT limited HISTORY: EXAMINATION: MM diagnostic alex LT w julio, US breast LT limited HISTORY: Follow-up left breast asymmetry TECHNIQUE: Additional 3-D tomosynthesis images of the left breast were performed and synthetic 2-D images were generated. CAD analysis was submitted and interpreted. High resolution Limited left breast ultrasound was performed. COMPARISON: Comparison to multiple prior studies sequentially, with oldest reviewed study dated 05/12/2025. BREAST PARENCHYMAL COMPOSITION: Not dense: There are scattered areas of fibroglandular density. FINDINGS: MAMMOGRAPHIC FINDINGS: There are no suspicious masses, calcifications or architectural distortion in the left breast to suggest malignancy.. ULTRASOUND: Limited left breast ultrasound: Normal heterogeneous echotexture without focal solid or cystic mass. IMPRESSION: 1. No evidence for malignancy in the left breast. 2. Routine yearly screening mammogram and regular clinical breast examination are recommended. BI-RADS Category 1: Negative Reviewed, dictated and finalized at location B. IMPRESSION: 1. No evidence for malignancy in the left breast. 2. Routine yearly screening mammogram and regular clinical breast examination a re recommended. BI-RADS Category 1: Negative
--- OUTSIDE RECORDS SUMMARY | 2025-06-18 13:31 | XMS_ITS | Patient Health Record ---
Author Organization [facility] Address [address] [place], [place] [id number] Care Team Providers Care Dye Machine Tender Name Role Phone JORGE Garcia Unavailable [phone] Kiara Marie Unavailable Unavailable Reason For Referral No Information Social History Social History Additional Details Category Social Info Options Details Migrated Social History Migrated Social History Alcohol intake : , Smoking Status : Never smoked , History of tobacco use : Plan Of Treatment No Information Insurance Providers Payer Name Payer Address Payer Phone Subscriber Number Group Number Insured Name Patient Relationship to Insured Coverage Start Date Coverage End Date Aetna [address] [place] [address] [id number] MEE SANCHES Self - patient is the insured [facility] ([facility]) ATTN CLAIMS [address] [place] [address] [id number] SHELL SANCHES Spouse - patient is the spouse of the insured
--- OUTSIDE RECORDS SUMMARY | 2025-06-18 13:31 | XMS_ITS | Clinical Summary ---
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 file Not on noah e Last Filed Vital Signs Vital Sign Reading Time Taken Comments Blood Pressure 110/70 07/11/2023 10:24 AM PEST CONTROL TECHNICIAN Pulse 62 08/25/2022 9:23 AM PEST CONTROL TECHNICIAN Temperature 36.7 C (98 F) 10/07/2019 9:08 AM PEST CONTROL TECHNICIAN Respiratory Rate - - Oxygen Saturation - - Inhaled Oxygen Concentration - - Weight 63.5 kg (140 lb) 07/11/2023 10:24 AM PEST CONTROL TECHNICIAN Height 168.9 cm (5' 6.5) 08/25/2022 9:23 AM PEST CONTROL TECHNICIAN Body Mass Index 22.26 08/25/2022 9:23 AM PEST CONTROL TECHNICIAN Plan of Treatment Health Maintenance Due Date Last Done Comments Hepatitis C 1973 Dexa Scan (General) 2021 Annual Medicare Wellness Visit 08/26/2023 08/25/2022 Mammogram Screening 02/06/2025 02/06/2023 COVID-19 Vaccine ( season) 2025 06/01/2022, 06/06/2021, 09/07/2020, Additional history exists Influenza Adult (#1) 2025 04/12/2022, 05/20/2021, 04/07/2020, Additional history exists DTaP, Tdap and Td Vaccines (3 - Td or Tdap) 09/18/2026 09/18/2016, 09/01/2010 Colorectal Cancer Screening Colonoscopy (10 Years) 07/20/2027 07/20/2017 RSV Immunization or 60+ Years (1 - 1-dose 75+ series) 12/17/2031 Zoster Vaccines Completed 07/06/2021, 0702/2021, 03/27/2017 Pneumococcal Vaccine: 50+ Years Completed 04/12/2022 Hepatitis A Vaccines Aged Out No long er eligible based on patient's age to complete this topic Meningococcal B Vaccine Aged Out No l [...] Routine 02/06/2023 COLONOSCOPY Routine 07/20/2017 12:00 AM PEST CONTROL TECHNICIAN from Last 3 Months or Most Recently Relevant to Health Maintenance Results * MAMMOGRAM (02/06/2023) Anatomical Region Laterality Modality Other us Doc Bfma Scanned SCANNING Final Result * Colonoscopy (07/20/2017 12:00 AM PEST CONTROL TECHNICIAN) 07/20/2017 07/20/2017 Narrative TOUCHWORKS TO EPIC CONVERSION - 07/20/2017 12:00 AM PEST CONTROL TECHNICIAN Documented hx of procedure Procedure Note , Generic ConversionMD - 11/07/2018 Documented hx of procedure us Generic Conversion Md EPSTEIN GI PROCEDURE ORDERABLES Final Result TOUCHWORKS TO EPIC CONVERSION from Last 3 Months or Most Recently Relevant to Health Maintenance Insurance MEDICARE [facility] Care Teams Industrial Waste Treatment Technician Relationship Specialty Start Date End Date Kiara Marie DO [address] [place] [address] PCP - General 10/21/12
--- OUTSIDE RECORDS SUMMARY | 2025-06-18 13:31 | XMS_ITS | Clinical Summary ---
Author Organization [email or web address] Address [address] [place] [address] Care Team Providers Care Portuguese Tutor Name Role Phone Kiara Marie Primary Care Provider [phone] Source Comments [facility],non-owned Affiliates and Associated Physician Practices is amultiple site organization consisting of ambulatory clinics and hospital sitesin [place], [place], [place] and [place]. This disclosure is being madepursuant to the Care Everywhere program and may not contain all information available regarding this patient. Last updated 18.[facility] Allergies No known active allergies Medications * [...] complete this topic Insurance ANTHEM Care Teams Portuguese Tutor Relationship Specialty Start Date End Date Kiara Marie DO PCP - General Family Medicine 04/24/17
--- OUTSIDE RECORDS SUMMARY | 2025-06-18 13:31 | XMS_ITS | Encounter Summary ---
Author Organization [facility] Care Team Providers Care Curing Bin Operator Name Role Phone Kiara Marie DO Primary Care Provider [phone] Encounter Details Date Type Department Care Team (Latest Contact Info) Description 10/31/2018 Orders Only MMG CLINCONV ProviderLidia MD [address] [place] [address] Social History Tobacco Use Types Packs/Day Years Used Date Smoking Tobacco: Never Assessed Comments Unknown Sex and Gender Information Value Date Recorded Sex Assigned at Not on file Legal Sex Female 5:45 PM SHAKE PACKER Gender Identity Female 12/05/2021 6:34 PM CDT [...] on filedocumented in this encounter Care Teams Curing Bin Operator Relationship Specialty Start Date End Date Kiara Marie DO [address] [address] PCP - General 10/10/18 documented as of this encounter
--- OUTSIDE RECORDS SUMMARY | 2025-06-18 13:31 | XMS_ITS | Clinical Summary ---
Author Organization [facility] [address] [place] [id number] Care Team Providers Care Train Driver Name Role Phone Kiara Marie DO Primary Care Provider [phone] Allergies No known active allergies Medications alendronate [...] on file Legal Sex Female 5:45 PM PRODUCT SUPPORT ANALYST Gender Identity Female 12/05/2021 6:34 PM CDT [...] OR MORE SITES Routine 10/10/2018 8:36 AM PRODUCT SUPPORT ANALYST from Last 3 Months or Most Recently [...] age 41, based on guidelines of the [employer] (ACR Practice Parameter for the Performance of Screening and Diagnostic Mammography) and [employer]. For women [...] 1 or 2 Site (10/10/2018 8:36 AM PRODUCT SUPPORT ANALYST) Anatomical Region Laterality Modality Body N/A Radiographic Yoly ging 10/10/2018 8:36 AM PRODUCT SUPPORT ANALYST Impressions 10/10/2018 9:14 AM PRODUCT SUPPORT ANALYST Osteoporosis. Bone mineral density: Normal (T-score above [...] Charly Shaver M.D. RB: EDU Report ID: [id number] Reading Location: [id number] [EOD] Narrative 10/10/2018 9:14 AM PRODUCT SUPPORT ANALYST EXAM DESCRIPTION: Bone Density Hip/Spine (STD) REASON FOR STUDY: 62 y/o year old postmenopausal white female with given history of osteoporosis. Gang Vibrator Operator/Model: [employer] A (S/N [id number]) CLINICAL INFORMATION: Current height: 65 inches Maximum [...] white female with given history of osteoporosis. Gang Vibrator Operator/Model: [employer] A (S/N [id number]) CLINICAL INFORMATION: Current height: 65 inches Maximum [...] Charly Shaver M.D. RB: EDU Report ID: [id number] Reading Location: [id number] [EOD] Hubert Mathur MD IMG DXA PROCEDURES Alva l Result from Last 3 Months or Most Recently Relevant to Health Maintenance Insurance MEDICARE Care Teams Train Driver Relationship Specialty Start Date End Date Kiara Marie DO [address] [id number] PCP - General 10/10/18
== END 2025-06-18 12:54 | disposition home or self-care (01) ==
LOC: ANHFOHIMG 12:56
PROVIDERS: PCP Family Medicine; Visit Provider Nurse Practitioner Family
DX: R92.8 Other abnormal and inconclusive findings on diagnostic imaging of breast (principal)
CPT/HCPCS: 76642; 77061; 77065; G0279